=== PATIENT | female | born 1930 | race Caucasian/White ===

== ENCOUNTER 2018-03-26 11:54 | Observation (INO) ==
[2018-03-26 12:53] VITALS: BMI 22.6
[2018-03-26] MEDS: NS 500 ML IV SCH ×2 (14:13→16:54)
[2018-03-26] MEDS ORDERED: NS 1,000 ML IV SCH (14:15)
[2018-03-26] MEDS: PANTOPRAZOLE 40 MG INJECTION IVP SCH (14:25)
--- NOTE | 2018-03-26 16:25 | History & Physical Report ---
History of Present Illness Date: 03/26/18 Chief complaint: abdominal pain HPI: Patient is an 87-year-old female who is a direct admit from Dr. Byrd's office for right-sided abdominal pain. Patient is in full care at [facility] and has had right-sided abdominal pain which has worsened over the past 2 days. She states this is pain she has never had before and it's the "worst pain I've ever had." She had 4 mg Zofran and [address] Byrd's office prior to transfer by EMS to the hospital. She does report the Demerol helped with her pain quite a bit, but the pain is returning. She has had some nausea and decreased appetite over the last 24 hours. She states she last ate some granola last evening at suppertime. Eating does not make her pain worse. She states movement makes the pain worse. She's had no acid reflux symptoms, minimal belching. She believes her symptoms are coming from her gallbladder. Last bowel movement was this morning and was normal. She's had no diarrhea. She' s had no recent fall or other injury. No history of kidney stones. Describes the pain as sharp and constant. She is currently on fentanyl patch and Dilaudid every 8 hours for chronic back pain. She states she was previously under the care of Dr. Cannon, pain management, and had epidural steroid injections. I spoke with family later this afternoon and they have concerns about the amount of pain medication she is on. Reports she's been on the Dilaudid and fentanyl for quite some time, as well as benzodiazepine at bedtime. They do state that any time there is talk of decreasing or taking away the pain medication, the patient is adamant that she needs it. She has apparently been to Dr. Cannon within the last month for the epidural steroid when she was having significant complaint of pain in the right hip and back. They report she was getting better in this regard and has been working with physical therapy. Review of Systems All systems PM: 10-point ROS was reviewed, no additional remarkable complaints except (decrease in appetite, nausea, right-sided abdominal pain-worse with movement, chronic back pain. Chronic constipation with no recent change in stools. Specifically denies any urinary symptoms.) Past Medical History Medical History: Medical History HTN (hypertension) Osteoporosis Medical History Updates: Osteoarthritis, history of hepatitis A, history of rheumatic fever as a child Surgical History: [id number]. T.L 1957. deisy cataracts [id number] Family History: Family History Mother , 93 CHF (congestive heart failure) Diabetes Brother Diabetes Cancer of lung Sister CHF (congestive heart failure) Rheumatic heart disease Family History: As Above - Social History Smoking status: Never smoker Substance use type: does not use Alcohol intake frequency: former alcohol drinker (states she used to drink a glass of wine daily.) Housing: senior living ([facility]) Current occupational status: retired Social history: PCP - Dr. Byrd Medications Home Medications Medication Instructions Recorded Confirmed Type Multivitamin [Multivitamins] 1 each PO DAILY #0 03/03/12 03/26/18 History Sennosides/Docusate Sodium 1 tab PO BID #0 05/23/16 03/26/18 History [Docusate Sodium-Senna Tablet] polyethylene glycol 3350 17 17 g PO DAILY #30 each 02/10/17 03/26/18 Rx gram/dose oral powder trolamine salicylate-aloe vera 10 1 applicatio TOP TID #141.7 g 02/10/18 Rx % topical cream fentanyl 50 mcg/hr transdermal 1 patch TD Q72H #10 patch 03/16/18 03/26/18 Rx patch Ascorbic Acid [Vitamin C] 500 mg PO BID 03/26/18 03/26/18 History Cholecalciferol (Vitamin D3) 1 cap PO DAILY 03/26/18 03/26/18 History [Vitamin D3] Fexofenadine [Bhavana] 180 mg PO HS 03/26/18 03/26/18 History Fluticasone Nasal Rye [Flonase] 2 spray INH DAILY 03/26/18 03/26/18 History Hydromorphone HCl 4 mg PO Q8H 03/26/18 03/26/18 History LORazepam [Ativan] 1 mg PO HS 03/26/18 03/26/18 History Lisinopril 5 mg PO DAILY 03/26/18 03/26/18 History Lisinopril 10 mg PO DAILY 03/26/18 03/26/18 History Lutein 20 mg PO DAILY 03/26/18 03/26/18 History Melatonin 5 mg PO HS 03/26/18 03/26/18 History Trazodone [Desyrel] 50 mg PO HS 03/26/18 03/26/18 History Allergies Allergy/AdvReac Type Severity Reaction Status Date / Time sulfamethoxazole Allergy Verified 03/19/17 15:12 [From ] trimethoprim [From ] Allergy Verified 03/19/17 15:12 aspirin AdvReac Mild VOMITING Verified 05/23/16 15:47 diphenhydramine AdvReac Unknown "HYPER" Verified 05/23/16 16:38 aspirin Allergy Uncoded 03/19/17 15:12 Exam Vital Signs: Temperature 97.2 F 03/26/18 12:49 Pulse Rate 74 03/26/18 12:49 Respiratory Rate 16 03/26/18 12:49 Blood Pressure 166/88 H 03/26/18 12:49 Pulse Oximetry 97 03/26/18 12:49 Height/Weight/BMI: Height 1.57 m Weight 56.2 kg Body Mass Index 22.6 - Constitutional Present: no acute distress, well nourished, well developed - Routine HEENT Exam Head: Present: normocephalic, atraumatic Eye: Present: EOMI, PERRL ENT: Present: mucous membranes moist, oropharynx clear - Routine Neck Exam Present: supple. Absent: lymphadenopathy, thyromegaly - Routine Respiratory Exam Present: CTA bilaterally. Absent: wheezes - Routine Cardiovascular Exam Present: RRR, no murmur - Routine Abdominal Exam Present: soft, normoactive bowel sounds, tenderness (tender over the lateral abdomen below the rib cage. She does have some lateral RUQ pain, but pain is more significant located on lateral side of abdomen below the ribs. She is not tender over the R flank. ). Absent: distended, rebound, guarding, firm, rigid - Routine Extremities Exam Present: no edema, normal capillary refill - Routine Skin Exam Present: dry, warm - Routine Neurological Exam Present: alert, CN II-XII intact, normal speech - Routine Psychiatric Exam Present: normal affect, cooperative Results - Labs CBC & Chem 7: 03/26/18 14:08 03/26/18 14:08 Assessment and Plan (1) Abdominal pain Current visit: Yes Status: Acute Assessment and Plan: Assessment R sided abdominal pain - r/o musculoskeletal etiology vs GB vs kidney stone vs other Chronic narcotic use Chronic back pain Hypertension Osteoarthritis Osteoporosis Plan Admit for OBS, pain control and further w-u. Labs/UA on admission are essentially negative. Will proceed with CT abd/pelvis. NPO for now. Will give her q 8 hr Dilaudid IV until she can resume her po Dilaudid. Consider scheduled acetaminophen and perhaps consider decrease in her Dilaudid dosing. Hold Ativan at bedtime, but will continue melatonin and trazodone. Continue lisinopril for her blood pressure. On the OCT from the senior living it' s currently dosed 10mg in the morning and 5 mg at bedtime. Will hold her 5 mg dose tonight since she is NPO. Monitor blood pressures and adjust lisinopril dosing as needed. PT/OT consults. IVF's to maintain hydration. Lovenox for DVT prophylaxis Protonix IV for GI prophylaxis and abdominal pain Patient requests a DO NOT RESUSCITATE CODE STATUS. PCP-Dr. Byrd. Case discussed with nursing staff, Dr. Andrade, and previous notes from Dr. Byrd's office reviewed. 03/26/2018-7:45 PM-I examined the patient independently. 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 We discussed and formulated the assessment and plan as above with the additions below.-Dr. Andrade Patient was seen this evening in her room. She states she has right side pain when she moves. It's okay at rest. She states she doesn't have much appetite, but [place] sherbet sounds good. She has had no recent falls. Her pain is in her right side between her hip and rib cage. It is tender to touch. There is no abdominal pain. She's had some intermittent nausea but no vomiting. No diarrhea. No fevers chills or sweats. No shortness of breath. No chest pain. She does have chronic pain and underwent epidural injection about a month ago for severe pain radiating down to her hip. CT abdomen and pelvis today showed no significant abnormalities within the abdomen or pelvis. A possible acute L1 compression fracture was seen associated retropulsion and probable stenosis. Lab work is essentially normal Impression and plan Right side pain-this does not appear to be an intra-abdominal issue. I'm wondering if it is nerve pain from L1 compression fracture. We'll check a CT lumbar spine tomorrow. Resume patient's oral medications. The patient may have diet as tolerated. Will start Lidoderm patch to place on the area of pain. Consult PT to see her tomorrow. Possible dismissal tomorrow depending upon patient's pain control and results of CT. I had a conversation with the patient's daughter and she wondered about hospice/ pain control issues. We did discuss the possibility of a palliative care consult. Likely this would not be able to be done this weekend. I did give her the name of Dr. Interiano with [facility] and when the patient is back in a senior living. Discontinue IV fluids. Discontinue iv pantoprazole. DVT Prophylaxis: Lovenox Resuscitation Status: Do Not Resuscitate - Physician Narrative Physician: Melissa Andrade MD Narrative: Date: 03/26/18 Time: 1618 Hospital Course Summary Disclaimer: The visit summary below is not to be considered part of the above Progress Note. Hospital Course: 03/26/18 Admit for OBS, pain control and further w-u. Labs/UA on admission are essentially negative. Will proceed with CT abd/pelvis. NPO for now. Will give her q 8 hr Dilaudid IV until she can resume her po Dilaudid. Consider scheduled acetaminophen and perhaps consider decrease in her Dilaudid dosing. Hold Ativan at bedtime, but will continue melatonin and trazodone. Continue lisinopril for her blood pressure. On the OCT from the senior living it' s currently dosed 10mg in the morning and 5 mg at bedtime. Will hold her 5 mg dose tonight since she is NPO. Monitor blood pressures and adjust lisinopril dosing as needed. PT/OT consults. IVF's to maintain hydration. Lovenox for DVT prophylaxis Protonix IV for GI prophylaxis and abdominal pain Patient requests a DO NOT RESUSCITATE CODE STATUS. PCP-Dr. Byrd. Case discussed with nursing staff, Dr. Andrade, and previous notes from Dr. Byrd's office reviewed.
[2018-03-26] MEDS ORDERED: SALINE FLUSH 10ml SYRINGE ONE (16:52)
[2018-03-26] MEDS ORDERED: IOHEXOL 300mg/ml 75ml INJECTION ONE (16:52)
[2018-03-26] MEDS ORDERED: HYDROMORPHONE 2 MG/ML INJECTION IVP SCH (17:00)
[2018-03-26] MEDS ORDERED: HYDROMORPHONE HCL 4 MG PO SCH (19:45)
[2018-03-26] MEDS ORDERED: HYDROMORPHONE 2 MG/ML INJECTION IVP PRN (19:46)
[2018-03-26] MEDS ORDERED: LIDOCAINE 5% PATCH TOP SCH (20:00)
[2018-03-26] MEDS: SENNA + DOCUSATE TABLET PO SCH (20:49)
[2018-03-26] MEDS ORDERED: TRAZODONE 50 MG TABLET PO SCH (21:00)
[2018-03-26] MEDS ORDERED: LORazepam 1 MG TABLET PO SCH (21:00)
[2018-03-26] MEDS ORDERED: LISINOPRIL 5 MG TABLET PO SCH (21:00)
[2018-03-26] MEDS ORDERED: MELATONIN 5 MG TABLET PO SCH (21:00)
[2018-03-26] MEDS ORDERED: LISINOPRIL 5 MG PO SCH (21:00)
[2018-03-27] MEDS: HYDROMORPHONE 2 MG TABLET PO SCH ×2 (01:24→08:42)
[2018-03-27 08:30] VITALS: BP 117/61; PULSE 70; TEMP 97.5; O2SAT 95
[2018-03-27] MEDS: PANTOPRAZOLE 40 MG INJECTION IVP SCH (08:41)
[2018-03-27] MEDS: SENNA + DOCUSATE TABLET PO SCH (08:43)
[2018-03-27 08:44] VITALS: RESP 18
--- NOTE | 2018-03-27 08:47 | Progress Note ---
- Date 03/27/18 Subjective: 87-year-old female who was a direct admit from Dr. Byrd's office for right- sided abdominal pain. Patient is in full care at [facility] and has had right-sided abdominal pain which has worsened over the past 2 days. She states this pain she has never had before and it's the "worst pain I've ever had." She had 4 mg Zofran and [address] Byrd's office prior to transfer by EMS to the hospital. She does report the Demerol helped with her pain quite a bit, but the pain is returning. She has had some nausea and decreased appetite over the last 24 hours prior to admission. She states she last ate some granola the evening of 03/25/18. Eating does not make her pain worse. She states movement makes the pain worse. She's had no acid reflux symptoms, minimal belching. She believes her symptoms are coming from her gallbladder. Last bowel movement was the morning of admission and was normal. She's had no diarrhea. She's had no recent fall or other injury. No history of kidney stones. Describes the pain as sharp and constant. She is currently on fentanyl patch and Dilaudid every 8 hours for chronic back pain. She states she was previously under the care of Dr. Cannon, pain management, and had epidural steroid injections. The family has concerns about the amount of pain medication she is taking. They report she's been on the Dilaudid and fentanyl for quite some time, as well as benzodiazepine at bedtime. They do state that any time there is talk of decreasing or taking away the pain medication, the patient is adamant that she needs it. She has apparently been to Dr. Cannon within the last month for the epidural steroid when she was having significant complaint of pain in the right hip and back. They report she was getting better in this regard and has been working with physical therapy. Today, she is resting comfortably and is in no pain as long as she does not move. She has not been out of bed this morning. She is asking about whether or not they have found new fractures in her back. I did discuss that she supposed to have a lumbar CT today. I asked her if there was something they could do with surgery would she even be interested and she reports she would not. I think that's a reasonable decision and I think keeping her comfortable would be way to go at her age. Once she's up and around more today and the lumbar CT is completed we can discuss timing of returning to [facility] She denies any other complaints today. She states that she said no fever or chills. She denies any lightheadedness or dizziness. She denies feeling short of breath. She denies any cough or sputum production. She denies any nausea, vomiting, diarrhea or constipation. She denies any abdominal pain again as long as she is still. She denies any dysuria. Objective Vital signs: Temperature 97.5 F 03/27/18 08:00 Pulse Rate 70 03/27/18 08:00 Respiratory Rate 12 03/27/18 08:00 Blood Pressure 117/61 03/27/18 08:00 Pulse Oximetry 95 03/27/18 08:00 Height/Weight/BMI: Height 1.57 m Weight 56.7 kg Body Mass Index 22.6 Comments: Gen: alert and oriented. NAD. Pleasant and conversive Skin: warm and dry, No rashes HEENT: NC/AT PERRL, EOMI, Sclera, lids and conjunctiva wnl. MMM. OP clear. Neck: No JVD, Carotids 2+ without bruits. Lungs: clear without rales, rhonchi or wheezes CV: regular, No murmur, rubs or gallops. DP pulses 2+, radial pulses 2+, No edema, SCDs in place Abd: soft. +BS, ND, mildly TTP in the RUQ with out rebound or guarding MS: SIH, Normal ROM, strength Neuro: No focal deficit Psy: Appropriate mood and affect. Results - Labs CBC & Chem 7: 03/26/18 14:08 03/26/18 14:08 Assessment and Plan (1) Abdominal pain Current visit: Yes Status: Acute Assessment and Plan: 03/27/18 [place] Assessment and Plan: right sided abdominal pain -likely muscle skeletal and Kazakh -await CT of lumbar spine -could possibly benefit from kyphoplasty -patient not interested in anything more extensive than that -once lumbar CT is back may consider consult with ortho -physical therapy to eval and treat today -continue pain management Chronic narcotic use -at her age I think this is appropriate to keep her as comfortable as possible without sedation Chronic pain issues -continue home pain management -Lidoderm patch added Hypertension -blood pressures much better this morning than they were last evening. -Continue lisinopril 10 in a.m. and 5 PM Prophylaxis -Lovenox and PPI Patient is a DNR DVT Prophylaxis: Lovenox GI Prophylaxis: Protonix Resuscitation Status: Do Not Resuscitate - Physician Narrative Narrative: Date: 03/27/18 Time: 0841 Hospital Course Summary Disclaimer: The visit summary below is not to be considered part of the above Progress Note. Hospital Course: 03/26/18 Admit for OBS, pain control and further w-u. Labs/UA on admission are essentially negative. Will proceed with CT abd/pelvis. NPO for now. Will give her q 8 hr Dilaudid IV until she can resume her po Dilaudid. Consider scheduled acetaminophen and perhaps consider decrease in her Dilaudid dosing. Hold Ativan at bedtime, but will continue melatonin and trazodone. Continue lisinopril for her blood pressure. On the OCT from the detention it' s currently dosed 10mg in the morning and 5 mg at bedtime. Will hold her 5 mg dose tonight since she is NPO. Monitor blood pressures and adjust lisinopril dosing as needed. PT/OT consults. IVF's to maintain hydration. Lovenox for DVT prophylaxis Protonix IV for GI prophylaxis and abdominal pain Patient requests a DO NOT RESUSCITATE CODE STATUS. PCP-Dr. Byrd. Case discussed with nursing staff, Dr. Andrade, and previous notes from Dr. Byrd's office reviewed.
[2018-03-27] MEDS ORDERED: POLYETHYL GLYCOL 3350 17gm PACKET PO SCH (09:00)
[2018-03-27] MEDS ORDERED: LISINOPRIL 10 MG TABLET PO SCH (09:00)
[2018-03-27] MEDS ORDERED: FLUTICASONE NASAL SPRAY 50mcg EA NOSTRIL SCH (09:00)
[2018-03-27] MEDS ORDERED: ENOXAPARIN 40 MG/0.4 ML INJECTION SQ SCH (09:00)
[2018-03-27] MEDS ORDERED: LIDOCAINE PATCH REMOVAL TOP SCH (09:00)
--- NOTE | 2018-03-27 12:15 | Discharge Summary ---
Discharge Information Date of admission: 03/26/18 12:15 Anticipated date of discharge: 03/27/18 Attending Physician: Melissa Andrade MD Primary care physician: Dusty Aparicio MD - Discharge Diagnosis (1) DDD (degenerative disc disease), lumbar Status: Acute (2) Abdominal pain Status: Acute (3) Compression fracture of L1 lumbar vertebra Status: Acute (4) Compression fracture of L4 lumbar vertebra Status: Acute (5) Compression fracture of fifth lumbar vertebra Status: Acute (6) Spinal stenosis of lumbar region Status: Acute (7) Chronic narcotic use Status: Acute (8) HTN (hypertension) Status: Chronic (9) Chronic pain syndrome Status: Acute right sided abdominal pain -likely muscle skeletal and Spanish -await CT of lumbar spine -could possibly benefit from kyphoplasty -patient not interested in anything more extensive than that -once lumbar CT is back may consider consult with ortho -physical therapy to eval and treat today -continue pain management Chronic narcotic use -at her age I think this is appropriate to keep her as comfortable as possible without sedation Chronic pain issues -continue home pain management -Lidoderm patch added Hypertension -blood pressures much better this morning than they were last evening. -Continue lisinopril 10 in a.m. and 5 PM Patient is a DNR - Laboratory Labs: 03/26/18 14:08 03/26/18 14:08 Laboratory Results - last 48 hr 03/26/18 03/26/18 03/26/18 13:56 14:08 14:08 WBC 10.3 RBC 4.03 Hgb 13.3 Hct 38.7 MCV 96.0 MCH 33.0 MCHC 34.4 RDW Std Deviation 47.2 Plt Count 363 MPV 9.1 L Immature Gran % (Auto) 0.2 Neut % (Auto) 77.3 H Lymph % (Auto) 13.6 L [place] % (Auto) 8.5 Eos % (Auto) 0.2 Baso % (Auto) 0.2 Neut # (Auto) 7.9 H Lymph # (Auto) 1.4 [place] # (Auto) 0.9 H Eos # (Auto) 0.0 Baso # (Auto) 0.0 Abs Immat Gran (auto) 0.02 Turbidity < 20 Sodium 138 Potassium 4.6 Chloride 101 Carbon Dioxide 24 Anion Gap 13 BUN 12.0 Creatinine 0.6 L Estimated Creat Clear 32 GFR Calculation 94 BUN/Creatinine Ratio 20 Glucose 93 Calculated Osmolality 266 Calcium 9.8 Total Bilirubin 0.50 Icterus Index < 2 AST 28 ALT 17 Alkaline Phosphatase 143 H Total Protein 7.1 Albumin 4.5 Globulin 2.6 Albumin/Globulin Ratio 1.7 Lipase 60 Specimen Hemolysis < 15 Ur Collection Type Urine, void-cc/notcc Urine Color Yellow Urine Clarity Clear Urine pH 7.0 Ur Specific [place] 1.015 Urine Protein Negative Urine Glucose (UA) Negative Urine Ketones Trace A Urine Occult Blood Negative Urine Nitrate Negative Urine Bilirubin Negative Urine Urobilinogen 0.2 Ur Leukocyte Esterase Negative Urinalysis Comment Microscopic not ind. - Radiology Radiology: CT of the abdomen and pelvis with contrast 03/26/18 lung basis unremarkable heart shows early coronary artery calcifications moderate sized hiatal hernia small low-density hepatic lesions, probably says gallbladder unremarkable splenic calcifications consistent with old granulomatous change adrenals unremarkable small left renal cysts stomach and bowel unremarkable pelvic CT unremarkable severe degenerative changes in the femoral head of the right hip left hip dynamics screw noted multiple lumbar compression deformities CT of lumbar spine without contrast 03/27/18 -diffuse radio [place] of the bones suggesting osteopenia osteoporosis -an acute on subacute 30% height loss superior endplate concave compression fracture of the L1 vertebral body --- disruption of the posterior vertebral body cortex and 5 mm osseous retropulsion. --- Mild to moderate spinal canal stenosis --- no posterior element fracture or spinal [place] alignment to suggest instability -an acute on subacute 50% height loss compression fracture of the L4 vertebral body --- 4 mm osseous retropulsion with moderate spinal canal stenosis --- no fracture of the posterior element --- 5 mm degenerative anterolithesis of L4 on L5 --- no evidence of spinal instability -an acute on subacute 40% height loss compression fracture of the L5 vertebral body --- 4 mm retropulsion of the posterior vertebral body cortex --- moderate spinal canal stenosis --- no fracture of the posterior elements and no evidence of spinal instability -multilevel spondylitis and disk degenerative changes of the spine --- mild spinal canal stenosis at L2-L3, severe spinal canal stenosis at L3-L4, and severe spinal canal stenosis at L4-L5 due to disk osteophyte bulge complexes History of Present Illness HPI: 87-year-old female who was a direct admit from Dr. Byrd's office for right- sided abdominal pain. Patient is in full care at [facility] [place] and has had right-sided abdominal pain which has worsened over the past 2 days. She states this pain she has never had before and it's the "worst pain I've ever had." She had 4 mg Zofran and [address] Byrd's office prior to transfer by EMS to the hospital. She does report the Demerol helped with her pain quite a bit, but the pain is returning. She has had some nausea and decreased appetite over the last 24 hours prior to admission. She states she last ate some granola the evening of 03/25/18. Eating does not make her pain worse. She states movement makes the pain worse. She's had no acid reflux symptoms, minimal belching. She believes her symptoms are coming from her gallbladder. Last bowel movement was the morning of admission and was normal. She's had no diarrhea. She's had no recent fall or other injury. No history of kidney stones. Describes the pain as sharp and constant. She is currently on fentanyl patch and Dilaudid every 8 hours for chronic back pain. She states she was previously under the care of Dr. Cannon, pain management, and had epidural steroid injections. The family has concerns about the amount of pain medication she is taking. They report she's been on the Dilaudid and fentanyl for quite some time, as well as benzodiazepine at bedtime. They do state that any time there is talk of decreasing or taking away the pain medication, the patient is adamant that she needs it. She has apparently been to Dr. Cannon within the last month for the epidural steroid when she was having significant complaint of pain in the right hip and back. They report she was getting better in this regard and has been working with physical therapy. Today, she is resting comfortably and is in no pain as long as she does not move. She has not been out of bed this morning. She is asking about whether or not they have found new fractures in her back. I did discuss that she supposed to have a lumbar CT today. I asked her if there was something they could do with surgery would she even be interested and she reports she would not. I think that's a reasonable decision and I think keeping her comfortable would be way to go at her age. Once she's up and around more today and the lumbar CT is completed we can discuss timing of returning to [facility]. She denies any other complaints today. She states that she said no fever or chills. She denies any lightheadedness or dizziness. She denies feeling short of breath. She denies any cough or sputum production. She denies any nausea, vomiting, diarrhea or constipation. She denies any abdominal pain again as long as she is still. She denies any dysuria. Objective Vital signs: Temperature 97.5 F 03/27/18 08:00 Pulse Rate 70 03/27/18 08:00 Respiratory Rate 18 03/27/18 08:42 Blood Pressure 117/61 03/27/18 08:00 Pulse Oximetry 95 03/27/18 08:00 Height/Weight/BMI: Height 1.57 m Weight 56.7 kg Body Mass Index 22.6 Comments: Gen: alert and oriented. NAD. Pleasant and conversive Skin: warm and dry, No rashes HEENT: NC/AT PERRL, EOMI, Sclera, lids and conjunctiva wnl. MMM. OP clear. Neck: No JVD, Carotids 2+ without bruits. Lungs: clear without rales, rhonchi or wheezes CV: regular, No murmur, rubs or gallops. DP pulses 2+, radial pulses 2+, No edema, SCDs in place Abd: soft. +BS, ND, mildly TTP in the RUQ with out rebound or guarding MS: SHI, Normal ROM, strength Neuro: No focal deficit Psy: Appropriate mood and affect Hospital Course This is a general summary of the patient's hospital course. For more details refer to the complete medical record. Hospital course: The patient was admitted with concerns of cholecystitis. This was ruled out. It was felt that her discomfort was related to her chronic degenerative disc disease. CT of the lumbar spine was done which showed the followings noted above. I discussed with her if there was surgical procedures to be done which she want them and she does not. She would like to continue with pain management and conservative management. She was up and ambulating with her walker today with less pain. She was back to baseline. She wanted to go back to her home at the [facility] [place]. She was felt to be stable to do so and arrangements were made. Time spent with patient: 25 - 35 minutes Resuscitation Status: Do Not Resuscitate Discharge Plan - Discharge Disposition Disposition: 04 To [facility] Home/Facility *Condition: Stable Reason For Visit (Visit label in EMR): RUQ pain - Discharge Medications *Discharge Medications: New Lidocaine Patch Removal [Lidoderm Patch Removal] 1 removal TOP DAILY patch Lidocaine 5% Patch [Lidoderm] 1 patch TOP HS 30 Days #30 patch Continue Multivitamin [Multivitamins] 1 each PO DAILY #0 Sennosides/Docusate Sodium [Docusate Sodium-Senna Tablet] 1 tab PO BID #0 Cholecalciferol (Vitamin D3) [Vitamin D3] 1 cap PO DAILY Ascorbic Acid [Vitamin C] 500 mg PO BID Lutein 20 mg PO DAILY Fexofenadine [Bhavana] 180 mg PO HS Hydromorphone HCl 4 mg PO Q8H Lisinopril 10 mg PO DAILY LORazepam [Ativan] 1 mg PO HS Melatonin 5 mg PO HS Trazodone [Desyrel] 50 mg PO HS Fluticasone Nasal [place] [Flonase] 2 spray INH DAILY Lisinopril 5 mg PO DAILY polyethylene glycol 3350 17 gram/dose oral powder 17 g PO DAILY #30 each fentanyl 50 mcg/hr transdermal patch 1 patch TD Q72H #10 patch trolamine salicylate-aloe vera 10 % topical cream 1 applicatio TOP TID # 141.7 g - Discharge Packet/Instructions *Diet: As previous *Activity: As previous *Pain Management/Treatment: As previous with the addition of lidoderm patches *Wound Care: N/A *Expected Signs/Symptoms: N/A *Notify Physician if: Worsening pain *During Business Hours Contact: PCP *After Business Hours Contact: vendor specialist MD for PCP *Pending Lab/Results: No Pending Lab - Referrals/Follow Up *Referrals/Follow Up: Dusty Aparicio MD [Primary Care Provider] - 1 Week - Patient Handouts - Dismissal Complete Discharge Instructions are:: Complete Physician Narrative - Narrative Attestation Narrative: Date: 03/27/18 Time: 1212
--- NOTE | 2018-03-27 12:46 | Extended Care Facility Orders ---
Admission Orders Admit to:: [facility] Allergies/Adverse Reactions: Allergies sulfamethoxazole [From Septra] Allergy (Verified 03/19/17 15:12) trimethoprim [From Aprra] Allergy (Verified 03/19/17 15:12) aspirin Adverse Reaction (Mild, Verified 05/23/16 15:47) VOMITING diphenhydramine Adverse Reaction (Unknown, Verified 05/23/16 16:38) "HYPER" aspirin Allergy (Uncoded 03/19/17 15:12) Admitting Diagnosis: RUQ pain Admitting Physician: Melissa Andrade MD Attending Physician: Melissa Andrade MD Code Status: Do Not Resuscitate Diet: Regular Diet [DIET] May use Facility Protocol or Standing Orders: Yes May have flu vaccine: Yes - Additional Information In Event of Arrest: Do Not Start CPR Resident is Aware of Diagnosis: Yes Laboratory/Radiology: CT of the abdomen and pelvis with contrast 03/26/18 lung basis unremarkable heart shows early coronary artery calcifications moderate sized hiatal hernia small low-density hepatic lesions, probably says gallbladder unremarkable splenic calcifications consistent with old granulomatous change adrenals unremarkable small left renal cysts stomach and bowel unremarkable pelvic CT unremarkable severe degenerative changes in the femoral head of the right hip left hip dynamics screw noted multiple lumbar compression deformities CT of lumbar spine without contrast 03/27/18 -diffuse radio [place] of the bones suggesting osteopenia osteoporosis -an acute on subacute 30% height loss superior endplate concave compression fracture of the L1 vertebral body --- disruption of the posterior vertebral body cortex and 5 mm osseous retropulsion. --- Mild to moderate spinal canal stenosis --- no posterior element fracture or spinal [place] alignment to suggest instability -an acute on subacute 50% height loss compression fracture of the L4 vertebral body --- 4 mm osseous retropulsion with moderate spinal canal stenosis --- no fracture of the posterior element --- 5 mm degenerative anterolithesis of L4 on L5 --- no evidence of spinal instability -an acute on subacute 40% height loss compression fracture of the L5 vertebral body --- 4 mm retropulsion of the posterior vertebral body cortex --- moderate spinal canal stenosis --- no fracture of the posterior elements and no evidence of spinal instability -multilevel spondylitis and disk degenerative changes of the spine --- mild spinal canal stenosis at L2-L3, severe spinal canal stenosis at L3-L4, and severe spinal canal stenosis at L4-L5 due to disk osteophyte bulge complexes Laboratory Results - last 48 hr 03/26/18 03/26/18 03/26/18 13:56 14:08 14:08 WBC 10.3 RBC 4.03 Hgb 13.3 Hct 38.7 MCV 96.0 MCH 33.0 MCHC 34.4 RDW Std Deviation 47.2 Plt Count 363 MPV 9.1 L Immature Gran % (Auto) 0.2 Neut % (Auto) 77.3 H Lymph % (Auto) 13.[address] [facility] % (Auto) 8.5 Eos % (Auto) 0.2 Baso % (Auto) 0.2 Neut # (Auto) 7.9 H Lymph # (Auto) 1.4 [facility] # (Auto) 0.9 H Eos # (Auto) 0.0 Baso # (Auto) 0.0 Abs Immat Gran (auto) 0.02 Turbidity < 20 Sodium 138 Potassium 4.6 Chloride 101 Carbon Dioxide 24 Anion Gap 13 BUN 12.0 Creatinine 0.6 L Estimated Creat Clear 32 GFR Calculation 94 BUN/Creatinine Ratio 20 Glucose 93 Calculated Osmolality 266 Calcium 9.8 Total Bilirubin 0.50 Icterus Index < 2 AST 28 ALT 17 Alkaline Phosphatase 143 H Total Protein 7.1 Albumin 4.5 Globulin 2.6 Albumin/Globulin Ratio 1.7 Lipase 60 Specimen Hemolysis < 15 Ur Collection Type Urine, void-cc/notcc Urine Color Yellow Urine Clarity Clear Urine pH 7.0 Ur Specific [place] 1.015 Urine Protein Negative Urine Glucose (UA) Negative Urine Ketones Trace A Urine Occult Blood Negative Urine Nitrate Negative Urine Bilirubin Negative Urine Urobilinogen 0.2 Ur Leukocyte Esterase Negative Urinalysis Comment Microscopic not ind. Referrals: Dusty Aparicio MD [Primary Care Provider] - 1 Week Additional Orders: Resume all needed therapies.
[2018-03-27] MEDS ORDERED: FEXOFENADINE 180 MG TABLET PO SCH (21:00)
[2018-03-27] MEDS ORDERED: LIDOCAINE 5% PATCH TOP SCH (21:00)
[2018-03-28] MEDS ORDERED: PANTOPRAZOLE 20 MG TABLET PO SCH (06:30)
--- NOTE | 2018-03-28 14:32 | CT Scan Report ---
Indication: back pain PROCEDURE: CT lumbar spine wo con: Encounter: Initial Comparison: None Technique: Axial noncontrast CT imaging of the lumbar spine was performed with coronal and sagittal two-dimensional reformats. Automated Exposure Control and Iterative Reconstruction dose reducing techniques were utilized. FINDINGS: Minimal scoliotic curvature. There is an acute fracture of the L1 vertebra mostly involving the superior endplate with approximately 20% height loss. Mild retropulsion of the posterior superior endplate resulting in mild central canal stenosis. There is an age-indeterminate mild biconcave compression fracture of L2. L3 vertebral height is maintained. There are also moderate compression fractures of L4 and L5 with 30-40% height loss. There is mild retropulsion of the L4 posterior superior endplate causing mild central canal stenosis. No significant retropulsion at L5. Bony demineralization. Mild to moderate degenerative facet disease at L4-S1. Paraspinal soft tissues show no acute findings. Degenerative disk and facet disease contributing to moderate to severe central canal stenosis at L3-L4 and L4-L5. Mild bony neural foraminal narrowing on the right at L5-S1. Impression: Multiple vertebral fractures, most of which appear acute, including L1, L4 and L5. There is a preliminary report by [facility]. .
--- NOTE | 2018-03-28 14:42 | CT Scan Report ---
Indication: r sided abd pain PROCEDURE: CT abdomen pelvis w con: Encounter: Initial Comparison: CT lumbar spine dated March 27, 2018 Technique: Axial CT images were performed through the abdomen and pelvis after the administration of intravenous contrast. Coronal and sagittal two-dimensional reformats. Automated Exposure Control and Iterative Reconstruction dose reducing techniques were utilized. Contrast: Omnipaque 300 67 mL Findings: The lung bases show atelectasis or scarring in the right lower lobe. Heart is enlarged. Moderate hiatal hernia. Tiny liver low attenuation foci, statistically representing benign cysts. No liver mass or bile duct dilatation. The gallbladder is unremarkable. 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 The pancreas and adrenal glands are within normal limits. Kidneys show no acute findings. No abdominal or pelvic adenopathy. Bladder is normal. Uterus is unremarkable. No evidence of a bowel obstruction. Bone windows show diffuse bony demineralization with multiple lumbar compression fractures better evaluated on the dedicated CT of the lumbar spine. Epidural spinal stimulator device in place with leads extending into the thoracic region. Impression: 1. No acute disease process seen in the abdomen or pelvis. 2. Multiple lumbar compression fractures. Please see the CT lumbar spine report for further details. There is a preliminary report by [facility]. .
== END 2018-03-27 14:38 ==
LOC: SRG
PROVIDERS: ADMIT Internal Medicine; ATTEND Internal Medicine